=== PATIENT | male | born 1995 | race Caucasian/White ===

== ENCOUNTER 2023-12-08 21:46 | Emergency (ER) | payer OTHER ==
[~2023-12-08] VITALS: Ht 165.1 cm; Wt 90.0 kg
[2023-12-08 21:48] VITALS: O2SAT 95
[2023-12-08] MEDS: ACETAMINOPHEN 325MG TABLET PO ONE (22:59)
[2023-12-09 00:49] VITALS: BP 115/62; PULSE 95; RESP 19; TEMP 98.2
== END 2023-12-09 00:53 | disposition home or self-care (01) ==
LOC: ER 21:46
DX: S00.01XA Abrasion of scalp, initial encounter (principal); X58.XXXA Exposure to other specified factors, initial encounter; Y93.9 Activity, unspecified; Y92.89 Other specified places as the place of occurrence of the external cause; Y99.8 Other external cause status
CPT/HCPCS: 70450; 99284; Z7610